=== PATIENT | female | born 1935 | race Asian ===

== ENCOUNTER 2019-02-16 07:59 | Emergency (ER) | payer OTHER ==
[~2019-02-16] VITALS: Ht 160 cm; Wt 63.6 kg
[~2019-02-16 07:59] MED LIST: ALEN70TA10 PO; OMEP20CA10 PO
[2019-02-16 08:35] LABS: BASOPHILS % (AUTO) 1.1 % (0.0-2.0); EOSINOPHILS % (AUTO) 1.5 % (1.0-6.0); HEMATOCRIT 40.1 % (36-46); HEMOGLOBIN 13.3 g/dL (12.0-16.0); LYMPHOCYTES # (AUTO) 4.3 K/uL (1.0-4.8); LYMPHOCYTES % (AUTO) 54.7 % (22.0-44.0); MEAN CORPUSCULAR HEMOGLOBIN 31.1 pg (26.0-34.0); MEAN CORPUSCULAR HGB CONC 33.2 G/dL (31.0-37.0); MEAN CORPUSCULAR VOLUME 94 fL (80-100); MONOCYTES # (AUTO) 0.7 K/uL (0.1-1.0); MONOCYTES % (AUTO) 9.1 % (2.0-9.0); NEUTROPHILS # (AUTO) 2.6 K/uL (1.8-7.7); NEUTROPHILS % (AUTO) 33.6 % (40.0-70.0); PLATELET COUNT (AUTO) 324 K/uL (150-450); RED BLOOD CELL COUNT(AUTO) 4.28 MIL/uL (4.00-5.20); RED CELL DISTRIBUTION WIDTH 12.9 % (11.5-14.5)
[2019-02-16 08:43] LABS: ANION GAP 7 mmol/L (8-16); CALCIUM, TOTAL 9.1 mg/dL (8.8-10.5); CARBON DIOXIDE 28 mmol/L (22-29); CHLORIDE 107 mmol/L (98-107); CREATININE 0.86 mg/dL (0.60-1.30); GLUCOSE,RANDOM 114 mg/dL (70-110); POTASSIUM 3.7 mmol/L (3.5-5.1); SODIUM SERUM 142 mmol/L (136-145); UREA NITROGEN, BLOOD 12 mg/dL (7-18)
[2019-02-16 08:44] LABS: GLOMERULAR FILTR. RATE CALC > 60 mL/min (>60)
[2019-02-16 08:50] LABS: ALANINE AMINOTRANSFERASE 25 U/L (12-78); ALBUMIN 3.6 g/dL (3.4-5.0); ALKALINE PHOSPHATASE 92 U/L (46-116); ASPARTATE AMINOTRANSFERASE 22 U/L (15-37); LIPASE 226 U/L (73-393); TOTAL PROTEIN, SERUM 7.1 g/dL (6.4-8.2)
[2019-02-16 09:00] LABS: B-TYPE NATRIURETIC PEPTIDE 35 pg/mL (0-100)
[2019-02-16 09:42] VITALS: BP 148/78
== END 2019-02-16 10:38 | disposition home or self-care (01) ==
LOC: EMS 07:59
DX: K80.50 Calculus of bile duct without cholangitis or cholecystitis without obstruction (principal)
CPT/HCPCS: 76700; 93005

== ENCOUNTER 2022-01-12 09:45 | Inpatient (IN) | payer MEDICARE, MEDICAID ==
[~2022-01-12] VITALS: Ht 162.6 cm; Wt 63.9 kg
[2022-01-12] MEDS ORDERED: MECLIZINE HCL 25 MG TABLET PO ONE (10:15)
[2022-01-12 10:22] LABS: BASOPHILS % (AUTO) 0.6 % (0.0-2.0); EOSINOPHILS % (AUTO) 0.6 % (1.0-6.0); HEMOGLOBIN 13.2 g/dL (12.0-16.0); LYMPHOCYTES # (AUTO) 1.6 K/uL (1.0-4.8); LYMPHOCYTES % (AUTO) 19.2 % (22.0-44.0); MEAN CORPUSCULAR HEMOGLOBIN 31.4 pg (26.0-34.0); MEAN CORPUSCULAR VOLUME 92 fL (80-100); MONOCYTES # (AUTO) 0.4 K/uL (0.1-1.0); MONOCYTES % (AUTO) 5.3 % (2.0-9.0); NEUTROPHILS % (AUTO) 74.3 % (40.0-70.0); PLATELET COUNT (AUTO) 290 K/uL (150-450); RED BLOOD CELL COUNT(AUTO) 4.21 MIL/uL (4.00-5.20); RED CELL DISTRIBUTION WIDTH 13.3 % (11.5-14.5)
[2022-01-12 10:31] LABS: ANION GAP 9 mmol/L (8-16); CALCIUM, TOTAL 8.3 mg/dL (8.8-10.5); CARBON DIOXIDE 26 mmol/L (22-29); CHLORIDE 107 mmol/L (98-107); CREATININE 0.72 mg/dL (0.60-1.30); GLOMERULAR FILTR. RATE CALC > 60 mL/min (>60); GLUCOSE,RANDOM 136 mg/dL (70-110); POTASSIUM 3.8 mmol/L (3.5-5.1); SODIUM SERUM 142 mmol/L (136-145); UREA NITROGEN, BLOOD 13 mg/dL (7-18)
[2022-01-12] MEDS ORDERED: MECLIZINE HCL 25 MG TABLET PO PRN (13:15)
[2022-01-12] MEDS ORDERED: AmLODIPine BESYLATE 5 MG TABLET PO SCH (13:15)
[2022-01-12] MEDS ORDERED: ONDANSETRON HCL 4 MG/2 ML VIAL IVP PRN (13:15)
[2022-01-12] MEDS ORDERED: ACETAMINOPHEN 325 MG TABLET PO PRN (13:15)
[2022-01-12 13:18] LABS: COVID AG,FIA SOURCE NASOPHARYNGEAL
[2022-01-12] MEDS: ATORVASTATIN CALCIUM 20 MG TABLET PO SCH (13:43)
[2022-01-12] MEDS: ASPIRIN 81 MG CHEWABLE TABLET PO SCH (13:44)
[2022-01-12] MEDS: HEPARIN SODIUM,PORCINE 5,000 UNITS/ML VIAL SQ SCH ×2 (15:26→23:49)
[2022-01-12 15:29] VITALS: BP 157/85
[2022-01-12 19:43] VITALS: BP 187/79
[2022-01-12] MEDS ORDERED: CloNIDine HCL 0.1 MG TABLET PO PRN (20:15)
[2022-01-12] MEDS ORDERED: AmLODIPine BESYLATE 5 MG TABLET PO ONE (20:15)
[2022-01-12] MEDS: DOCUSATE SODIUM 100 MG CAPSULE PO SCH (20:30)
[2022-01-13] VITALS (7 sets, daily range): BP systolic 131–153; BP diastolic 61–84
[2022-01-13] MEDS: ATORVASTATIN CALCIUM 20 MG TABLET PO SCH (09:51)
[2022-01-13] MEDS: DOCUSATE SODIUM 100 MG CAPSULE PO SCH ×2 (09:51→21:00)
[2022-01-13] MEDS: HEPARIN SODIUM,PORCINE 5,000 UNITS/ML VIAL SQ SCH ×3 (09:51→23:55)
[2022-01-13] MEDS: ASPIRIN 81 MG CHEWABLE TABLET PO SCH (09:51)
[2022-01-13] MEDS: AmLODIPine BESYLATE 10 MG TABLET PO SCH (09:52)
[2022-01-13] MEDS: FAMOTIDINE 20 MG TABLET PO SCH (09:53)
[2022-01-14 04:07] VITALS: BP 135/56
[2022-01-14 07:33] VITALS: BP 135/77
[2022-01-14] MEDS: ASPIRIN 81 MG CHEWABLE TABLET PO SCH (08:20)
[2022-01-14] MEDS: DOCUSATE SODIUM 100 MG CAPSULE PO SCH (08:20)
[2022-01-14] MEDS: ATORVASTATIN CALCIUM 20 MG TABLET PO SCH (08:20)
[2022-01-14] MEDS: HEPARIN SODIUM,PORCINE 5,000 UNITS/ML VIAL SQ SCH (08:20)
[2022-01-14] MEDS: FAMOTIDINE 20 MG TABLET PO SCH (08:20)
[2022-01-14] MEDS: AmLODIPine BESYLATE 10 MG TABLET PO SCH (08:20)
[2022-01-14 11:19] VITALS: BP 109/66
[2022-01-14] MEDS ORDERED: ASPI-1444 PO (12:06)
[2022-01-14] MEDS ORDERED: AMLO-257 PO (12:06)
[2022-01-14] MEDS ORDERED: MECL-134 PO (12:07)
== END 2022-01-14 14:00 | disposition home or self-care (01) | DRG 149 ==
LOC: EMS 09:53 → 5S 13:50
PROVIDERS: ADMIT Internal Medicine; ATTEND Internal Medicine
DX: H81.10 Benign paroxysmal vertigo, unspecified ear (principal); I10 Essential (primary) hypertension; M19.90 Unspecified osteoarthritis, unspecified site; Z79.899 Other long term (current) drug therapy; Z20.822 Contact with and (suspected) exposure to COVID-19
CPT/HCPCS: 70450; 70551; 80048; 85025; 93005; 93306; 93880; 97116; 97161; 97530; 99285; J1644; J2405